=== PATIENT | female | born 1940 | race Caucasian/White ===

== ENCOUNTER 2017-04-22 08:08 | Outpatient (CLI) | payer MEDICARE | END 2017-04-22 08:09 | disposition home or self-care (01) | LOC: BICMAMMO 08:08 | PROVIDERS: ATTEND Family Medicine | DX: Z12.31 Encounter for screening mammogram for malignant neoplasm of breast (principal); Z13.820 Encounter for screening for osteoporosis | CPT/HCPCS: 77063; 77080; G0202; 77067 ==

== ENCOUNTER 2018-01-14 12:15 | Outpatient (CLI) | payer MEDICARE ==
[2018-01-14 13:28] LABS: #Eosinphils 0.1 thou/uL (0.0-0.7); #Lymphocytes 1.5 thou/uL (1.20-3.40); #Monocytes 0.5 thou/uL (0.11-0.59); #Neutrophils 4.5 thou/uL (1.40-6.50); %Basophils 0.5 % (0.0-1.0); %Eosinophils 1.7 % (0.0-10.0); %Lymphocytes 23.1 % (21.0-51.0); %Monocytes 7.6 % (0.0-10.0); %Neutrophils 67.1 % (42.0-75.0); Hemoglobin 13.1 g/dL (12.0-16.0); Mean Corpuscular HGB CONC 34.3 g/dL (32.0-36.0); Mean Corpuscular Hemoglobin 29.7 pg (27.0-31.0); Mean Corpuscular Volume 86.5 fL (78.0-98.0); Mean Platelet Volume 6.9 fL (7.4-10.4); Platelet Count 359 thou/uL (130-400); RBC Distribution Width 11.7 % (11.5-14.5); White Blood Cell (WBC) Count 6.7 thou/uL (4.8-10.8)
[2018-01-14 13:33] LABS: Bilirubin Negative (Negative); Blood, Urine Negative (Negative); Clarity CLOUDY (Clear); Glucose, Urine (Dipstick) Negative (Negative); Leukocyte Large (Negative); Nitrite Negative (Negative); Protein, Urine (Dipstick) Negative (Neg-Trace); Specific Gravity, Urine 1.017 (1.002-1.036)
[2018-01-14 13:36] LABS: INR-International Normal Ratio 0.9; PTT 28.6 SEC (22.9-36.1); Prothrombin Time 12.5 SEC (12.0-14.7)
[2018-01-14 13:47] LABS: Bacteria/HPF 4+ HPF (None Seen); Hyaline Casts/LPF 0-3 HYALINE CAST LPF (0-3 Hyaline); RBC/HPF 0-3 HPF (0-3); Squamous Epithelial 0-3 HPF (0-3)
[2018-01-14 14:05] LABS: Anion Gap 14 mmol/L (10-20); BUN (Urea Nitrogen) 23 mg/dL (9.8-20.1); Calc. Creatinine Clearance 0 mL/min (70-130); Calcium 9.9 mg/dL (7.8-10.44); Carbon Dioxide 26 mmol/L (23-31); Chloride 99 mmol/L (98-107); Estimated GFR-MDRD 44; Glucose 91 mg/dL (83-110); Sodium 135 mmol/L (136-145)
== END 2018-01-14 12:16 | disposition home or self-care (01) ==
LOC: LABBT 12:15
PROVIDERS: ATTEND Orthopaedic Surgery
DX: Z01.818 Encounter for other preprocedural examination (principal); M17.11 Unilateral primary osteoarthritis, right knee
CPT/HCPCS: 80048; 81001; 85025; 85610; 85730; 86850; 86900; 86901; 87081; 93005; 93010

== ENCOUNTER 2018-01-19 05:32 | Day surgery (SDC) | payer MEDICARE ==
[2018-01-14 12:54] VITALS: BMI 32.9
[2018-01-19] MEDS ORDERED: CEFAZOLIN/Water 2 GM/20 ML SYRINGE ONE (06:22)
[2018-01-19] MEDS ORDERED: Sodium Chloride 0.9% 100 ML ONE (06:23)
[2018-01-19] MEDS ORDERED: Midazolam HCl 2 mg/2 ml Vial ONE (06:25)
[2018-01-19] MEDS ORDERED: Fentanyl 100 MCG/2 ML VIAL ONE (06:25)
[2018-01-19] MEDS ORDERED: Lidocaine 1% (PF) 30 ML VIAL ONE (06:26)
[2018-01-19] MEDS ORDERED: Vancomycin HCl 1.5 GM in Sodium Chloride 0.9% 250 ML 300 ML IVPB SCH ×2 (06:30→19:00)
[2018-01-19] MEDS ORDERED: Bupivacaine/Epinephrine 0.25% 30 ML VIAL ONE ×2 (06:33→06:43)
[2018-01-19] MEDS ORDERED: HYDROcodone/Acetaminophen 10/325 mg Tablet PO PRN ×2 (06:50)
[2018-01-19] MEDS ORDERED: diphenhydrAMINE 25 MG CAP PO PRN (06:50)
[2018-01-19] MEDS ORDERED: traMADol HCl 50 MG TAB PO PRN ×3 (06:50→06:58)
[2018-01-19] MEDS ORDERED: Promethazine HCl 25 MG/ML VIAL IM PRN ×3 (06:50→09:34)
[2018-01-19] MEDS ORDERED: Zolpidem Tartrate 5 MG TAB PO PRN ×2 (06:50→06:58)
[2018-01-19] MEDS ORDERED: Fentanyl 100 MCG/2 ML VIAL SLOW IVP PRN ×2 (06:50)
[2018-01-19] MEDS ORDERED: Ondansetron HCl/PF 4 MG/2 ML Vial IVP PRN ×3 (06:50→09:34)
[2018-01-19] MEDS ORDERED: Acetaminophen 325 MG TAB PO PRN (06:50)
[2018-01-19] MEDS ORDERED: HYDROmorphone 2 MG/ML VIAL ONE (06:55)
[2018-01-19] MEDS ORDERED: Ropivacaine HCl/PF 250 ML in Premix Bag 1 BAG NERVE BLCK SCH (06:58)
[2018-01-19] MEDS ORDERED: Fentanyl 100 MCG/2 ML VIAL IV PRN (06:59)
[2018-01-19] MEDS ORDERED: Levofloxacin 500 mg/D5W 100 ml Premix Bag ONE (07:46)
[2018-01-19] MEDS ORDERED: HYDROmorphone 2 MG/ML VIAL SLOW IVP PRN (09:34)
[2018-01-19] MEDS ORDERED: Promethazine HCl 25 MG/ML VIAL SLOW IVP PRN (09:34)
[2018-01-19] MEDS ORDERED: Tranexamic Acid 1,000 MG in Sodium Chloride 0.9% 100 ML IVPB SCH (09:45)
[2018-01-19 10:02] LABS: Bilirubin Negative (Negative); Blood, Urine Negative (Negative); Clarity CLEAR (Clear); Glucose, Urine (Dipstick) Negative (Negative); Leukocyte Small (Negative); Nitrite Negative (Negative); Protein, Urine (Dipstick) Negative (Neg-Trace); Specific Gravity, Urine 1.016 (1.002-1.036); Urobilinogen 0.2 mg/dL (0.2-1.0)
[2018-01-19 10:04] LABS: Bacteria/HPF None Seen HPF (None Seen); Hyaline Casts/LPF 0-3 HYALINE CAST LPF (0-3 Hyaline); Pathc Cast-AUWi Flag 0.58 (0-2.49); RBC/HPF 0-3 HPF (0-3); Squamous Epithelial 0-3 HPF (0-3)
--- NOTE | 2018-01-19 10:14 | OP ---
DATE OF PROCEDURE: 01/19/2018 PREOPERATIVE DIAGNOSIS: Right knee osteoarthritis. POSTOPERATIVE DIAGNOSIS: Right knee osteoarthritis. PROCEDURE PERFORMED: Right total knee arthroplasty. STAFF: Alvin Mays M.D. PUBLIC POLICY PROFESSOR: Adolfo Rowe PA-C. ANESTHESIA: [place]. The patient received a LMA with a single shot sciatic and an adductor canal block. ESTIMATED BLOOD LOSS: 100 mL. TOURNIQUET TIME: 89 minutes at 300 mmHg. ANTIBIOTICS: Vancomycin 1.5 grams, Ancef 2 grams and Levaquin 500 mg, he does have a positive UA. TXA 1 gram. IMPLANTS: A Tony size 4 femur, tibia 4 tibial tray, 9 CS femur an A29 patella. COMPLICATIONS: None. HISTORY OF PRESENT ILLNESS: Ms. Cruz is a 77-year-old female who presented with right knee pain after an injury 2 years ago. The patient was treated nonoperatively for a plateau fracture. The patient had pain rated 9/10, had previous hip surgery at the [facility]. She was given an injection which gave her 2 months' relief. The patient understood the risks and benefits of right total knee arthroplasty to include pain, scar, bleeding, infection, damage to vital structures, decreased motor or strength, continued pain despite surgical intervention, need for further surgeries, loss of life or limb. The patient understood these risks and elected to proceed. PROCEDURE IN DETAIL: Timeout performed designating the patient's right lower extremity as the operative site based on site, consents, marking. After completion of timeout, the patient's right lower extremity was prepped and draped in sterile fashion. Tourniquet was brought up and left up for a total of 89 minutes. Anterior midline incision was made medial patellar arthrotomy. We excised the fat pad, did a small medial release and physiologically the patient had valgus. We excised the fat pad, everted the patella. We started to pinned our femur. Our computer navigation despite changing through 2 different guns and 2 different computers was not sinking, therefore we had to move to manual jigs and made our drill hole for our intramedullary guide, placed our intramedullary guide, placed the external jig in place. We cut at 8 mm. We had a small butterfly after removing our bone. We then placed a 3 degree external rotation guide based on epicondyle axis. We pinned and cut the patient in 3 degrees of external rotation. We sized to a 4 medial, lateral, anterior, posterior might have been a little smaller, felt the medial lateral, the best fit was a size 4, which we cut. We then moved anterior, posterior chamfer cuts. The ACL was gone. We placed our pickle fork in position to expose the patient's tibia. We used our drop nathan guide trying to give about 4/ 5 degrees of posterior slope. We pinned it into place, pinned it so that we were getting 2 mm off the affected side which was the lateral plateau. We cut, removed our access segment of the tibia. I felt we had overall good cut, the PCL was still intact. We then removed our menisci. Placed our osteotome and decompressed osteophytes, decompressed our PCL. We then placed our tray in the appropriate position, we pinned it. After we pinned it, we removed it and floated it, we placed a 9 mm poly. We looked on the tibial tubercle. We liked the overall alignment of the limb. We pinned our tray into place. We had good flexion, extension with a 9 mm poly, felt we had overall good alignment of the limb based on our tibial tray. After we pinned our tray we then chose final implants. We drilled holes for our lugs. We cut our keel for our tibia. We everted patella went down from 25 down to about 12 mm. We put an A29 symmetric patella. The patient tracked well. Drilled the lugs, tracked our patella. We then everted, removed all the implants and cemented our tibia, removed the excess cement, cemented our femur, placed our poly, cemented our femur, removed excess cement, placed our patella cemented it into place. We then cleaned out, washed out the joint to assure there was no excess cement. We then closed down the patient's knee arthrotomy with #1 Vicryl. We then did #2 Quill, 0 Quill and 2-0 Quill and glue. The patient will be admitted post-procedure for [place] protocol followed by Medicine. Followed by physical therapy as per protocol. SURENDRA
[2018-01-19] MEDS: Sodium Chloride 0.9% 1,000 ML IV SCH ×2 (11:39→18:12)
--- NOTE | 2018-01-19 11:39 | RAD ---
RIGHT KNEE TWO VIEWS: HISTORY: Postop total knee. COMPARISON: Knee radiographs from 2015. FINDINGS: Satisfactory postoperative appearance from right total knee arthroplasty and patellar resurfacing. E xpected postoperative gas and edema. IMPRESSION: Satisfactory postoperative appearance. POS: TPC
[2018-01-19] MEDS: Aspirin 81 mg Enteric Coated Tablet PO SCH ×2 (11:40→19:54)
[2018-01-19] MEDS ORDERED: Ropivacaine 0.2% HCl/PF (40 MG/20 ML VIAL) ONE (13:47)
[2018-01-19] MEDS ORDERED: Ropivacaine 0.5% HCl/PF (150 MG/30 ML VIAL) ONE (13:47)
[2018-01-19] MEDS ORDERED: Mag-Al 1200 mg/1200 mg/30 ML UDCUP PO PRN (13:50)
[2018-01-19] MEDS ORDERED: Eucerin (Mineral Oil/Petrolatum,White) 30 gm Jar TOP PRN (13:50)
[2018-01-19] MEDS ORDERED: Chloraseptic Spray 180 ml Bottle PO PRN (13:50)
[2018-01-19] MEDS ORDERED: hydrALAZINE 20 MG/ML VIAL SLOW IVP PRN (13:50)
[2018-01-19] MEDS ORDERED: Loperamide HCl 2 MG CAP PO PRN (13:50)
[2018-01-19] MEDS ORDERED: Milk Of Magnesia 30 ML UDCUP PO PRN (13:50)
[2018-01-19] MEDS ORDERED: Artificial Tear Sol 15 ML BOT EA EYE PRN (13:50)
[2018-01-19] MEDS ORDERED: Senokot 8.6 MG TAB PO PRN (13:50)
[2018-01-19] MEDS ORDERED: Diabetic Tussin 200 MG/10 ML UDCUP PO PRN (13:50)
[2018-01-19] MEDS ORDERED: Dextrose 50% Abboject 50 ML SYRINGE SLOW IVP PRN (14:02)
[2018-01-19] MEDS ORDERED: HumaLOG 300 UNITS/3 ML VIAL SC PRN ×2 (14:02)
[2018-01-19] MEDS ORDERED: Dextrose 5% in Water 1,000 ML IV PRN (14:02)
--- NOTE | 2018-01-19 14:02 | PDOC.PN ---
- Subjective Encounter Start Date: 01/19/18 Encounter Start Time: 13:00 -: old records requested/rev pt is admitted for knee replacement, post op consulted for medical management Patient seen and examined. No new complaints. - Objective Resuscitation Status: Resuscitation Status FULL:Full Resuscitation MAR Reviewed: Yes Vital Signs & Weight: Vital Signs (12 hours) Temp Pulse Resp BP BP Pulse Ox 01/19/18 13:45 98.0 F 83 16 118/76 99 01/19/18 11:56 98.6 F 82 18 104/56 L 100 01/19/18 10:15 97.5 F L 87 18 148/82 H 96 Weight Weight 180 lb Radiology Reviewed by me: Yes Phys Exam - Physical Examination Constitutional: NAD HEENT: PERRLA, moist MMs, sclera anicteric Neck: no JVD, supple Respiratory: no wheezing, no rales, no rhonchi Cardiovascular: RRR, no significant murmur, no rub Gastrointestinal: soft, non-tender, no distention, positive bowel sounds Musculoskeletal: no edema, pulses present right knee with dressing, nerve block in place, vargas in place Neurological: non-focal, normal sensation, moves all 4 limbs Psychiatric: normal affect, A&O x 3 Skin: no rash, normal turgor Dx/Plan (1) Status post total right knee replacement Code(s): Z96.651 - PRESENCE OF RIGHT ARTIFICIAL KNEE JOINT Status: Acute (2) CKD (chronic kidney disease) stage 3, GFR 30-59 ml/min Code(s): N18.3 - CHRONIC KIDNEY DISEASE, STAGE 3 (MODERATE) Status: Chronic (3) Diabetes type 2, controlled Code(s): E11.9 - TYPE 2 DIABETES MELLITUS WITHOUT COMPLICATIONS Status: Chronic (4) Dyslipidemia Code(s): E78.5 - HYPERLIPIDEMIA, UNSPECIFIED Status: Chronic (5) Hypertension Code(s): I10 - ESSENTIAL (PRIMARY) HYPERTENSION Status: Chronic (6) Hypothyroidism Code(s): E03.9 - HYPOTHYROIDISM, UNSPECIFIED Status: Chronic (7) Obesity (BMI 30.0-34.9) Code(s): E66.9 - OBESITY, UNSPECIFIED Status: Chronic (8) Osteoporosis Code(s): M81.0 - AGE-RELATED OSTEOPOROSIS W/O CURRENT PATHOLOGICAL FRACTURE Status: Chronic - Plan cont current plan of care, plan discussed w/ family, PT/OT * continue aspirin for DVT prophylaxis * add pepcid 20 mg po HS for GI prophylaxis * nerve block as per anesthesia * PT/OT as per [facility] protocol treatment * medication reviewed as below * symptomatic treatment * discussed with family * code status: full code * Home medication reconciled. * add hyperglycemia protocol orderes Review of Systems - Review of Systems Constitutional: negative: fever, chills, sweats, weakness, malaise, other ENT: negative: Ear Pain, Ear Discharge, Nose Pain, Nose Discharge, Nose Congestion, Mouth Pain, Mouth Swelling, Throat Pain, Throat Swelling, Other Respiratory: negative: Cough, Dry, Shortness of Breath, Hemoptysis, SOB with Excertion, Pleuritic Pain, Sputum, Wheezing Cardiovascular: negative: chest pain, palpitations, orthopnea, paroxysmal nocturnal dyspnea, edema, light headedness, other Gastrointestinal: negative: Nausea, Vomiting, Abdominal Pain, Diarrhea, Constipation, Melena, Hematochezia, Other Genitourinary: negative: Dysuria, Frequency, Incontinence, Hematuria, Retention , Other Musculoskeletal: negative: Neck Pain, Shoulder Pain, Arm Pain, Back Pain, Hand Pain, Leg Pain, Foot Pain, Other Skin: negative: Rash, Lesions, Florian, Bruising, Other - Medications/Allergies Allergies/Adverse Reactions: Allergies Allergy/AdvReac Type Severity Reaction Status Date / Time No Known Allergies Allergy Verified 01/14/18 12:54 Medications: Current Medications Acetaminophen (Tylenol) 650 mg PO Q4H PRN PRN Reason: MALDONADO/ T > 101F; Mild Pain (1-3) Hydrocodone Bitart/Acetaminophen ([place] 10/325) 1 tab PO Q4H PRN PRN Reason: Pain (1-3) Hydrocodone Bitart/Acetaminophen ([place] 10/325) 2 tab PO Q4H PRN PRN Reason: PAIN (4-6) Al Hydroxide/Mg Hydroxide (Maalox) 15 ml PO Q4H PRN PRN Reason: Heartburn or Indigestion Artificial Tears (Tears Naturale) 0 drop EA EYE PRN PRN PRN Reason: Dry Eyes Aspirin (Ecotrin) 81 mg PO BID [facility] Last Admin: 01/19/18 11:40 Dose: Not Given Cefazolin Sodium (Ancef) 2 gm SLOW IVP 0800,1600,2359 [facility] Stop: 01/20/18 00:00 Citalopram Hydrobromide (Celexa) 40 mg PO QAM [facility] Diphenhydramine HCl (Benadryl) 25 mg PO Q6H PRN PRN Reason: Itching Famotidine (Pepcid) 20 mg PO BID [facility] Fentanyl (Sublimaze) 50 mcg IV Q1H PRN PRN Reason: BREAKTHROUGH PAIN Ferrous Gluconate (Fergon) 324 mg PO BID [facility] Guaifenesin (Robitussin Sf) 200 mg PO Q4H PRN PRN Reason: Cough Hydralazine HCl (Apresoline) 10 mg SLOW IVP Q4H PRN PRN Reason: Systolic BP > 180 Hydrochlorothiazide (Hydrochlorothiazide) 25 mg PO QAM [facility] Levofloxacin 500 mg/ Device 100 mls @ 100 mls/hr IVPB Q24HR@0800 [facility] Stop: 01/20/18 08:59 Sodium Chloride (Normal Saline 0.9%) 1,000 mls @ 100 mls/hr IV .Q10H [facility] Last Admin: 01/19/18 11:39 Dose: Not Given Vancomycin HCl 1.5 gm/ Sodium (Chloride) 300 mls @ 200 mls/hr IVPB 1900 [facility] Stop: 01/19/18 20:29 Ropivacaine 250 ml/ Device 250 mls @ 0 mls/hr NERVE BLCK INF [facility] Iron/Minerals/Multivitamins (Theragran M) 1 tab PO DAILY [facility] Levothyroxine Sodium (Synthroid) 100 mcg PO 0600 [facility] Lisinopril (Zestril) 20 mg PO QAM [facility] Loperamide HCl (Imodium) 2 mg PO PRN PRN PRN Reason: Diarrhea/Loose Stools Magnesium Hydroxide (Milk Of Magnesium) 30 ml PO DAILYPRN PRN PRN Reason: Constipation Metformin HCl (Glucophage) 850 mg PO BID-[facility] Mineral Oil/White Petrolatum (Eucerin Cream) 0 gm TOP BIDPRN PRN PRN Reason: Dry Skin Ondansetron HCl (Zofran) 4 mg IVP Q6H PRN PRN Reason: Nausea/Vomiting Phenol (Chloraseptic [place] 180 Ml Bot) 0 ml PO PRN PRN PRN Reason: Sore Throat Promethazine HCl (Phenergan) 12.5 mg IM Q4H PRN PRN Reason: Nausea Senna (Senokot) 2 tab PO HSPRN PRN PRN Reason: Constipation Senna/Docusate Sodium (Senokot S) 2 tab PO BID [facility] Simvastatin (Zocor) 10 mg PO HS [facility] Sodium Chloride (Flush - Normal Saline) 10 ml IVF Q12HR [facility] Last Admin: 01/19/18 11:40 Dose: Not Given Sodium Chloride (Flush - Normal Saline) 10 ml IVF PRN PRN PRN Reason: Saline Flush Tramadol HCl (Ultram) 50 mg PO Q6H PRN PRN Reason: Mild Pain (1-3) Tramadol HCl (Ultram) 100 mg PO Q6H PRN PRN Reason: Moderate Pain 4-6 Zolpidem Tartrate (Ambien) 5 mg PO HSPRN PRN PRN Reason: Insomnia
[2018-01-19] MEDS ORDERED: Lidocaine 1% PF 5 ML VIAL ONE (14:21)
[2018-01-19] MEDS ORDERED: PROPOFOL 200 MG/20 ML VIAL ONE (14:21)
[2018-01-19] MEDS ORDERED: Ondansetron HCl/PF 4 MG/2 ML Vial ONE (14:21)
[2018-01-19] MEDS ORDERED: ePHEDrine/0.9% NaCl/PF SYRINGE 50 mg/10 ml ONE (14:21)
[2018-01-19] MEDS: HYDROcodone/Acetaminophen 10/325 mg Tablet PO PRN ×2 (15:39→19:54)
[2018-01-19] MEDS: CEFAZOLIN/Water 2 GM/20 ML SYRINGE SLOW IVP SCH ×2 (17:39→23:38)
[2018-01-19] MEDS: metFORMIN 850 MG TAB PO SCH (18:12)
[2018-01-19] MEDS: Simvastatin 5 MG TAB PO SCH (19:54)
[2018-01-20] MEDS: CEFAZOLIN/Water 2 GM/20 ML SYRINGE SLOW IVP SCH (00:48)
[2018-01-20] MEDS: Sodium Chloride 0.9% 1,000 ML IV SCH ×2 (00:50→12:52)
[2018-01-20] MEDS: HYDROcodone/Acetaminophen 10/325 mg Tablet PO PRN ×4 (02:52→21:03)
[2018-01-20 04:39] LABS: Hemoglobin 10.7 g/dL (12.0-16.0); Mean Corpuscular HGB CONC 33.6 g/dL (32.0-36.0); Mean Corpuscular Hemoglobin 29.1 pg (27.0-31.0); Mean Corpuscular Volume 86.8 fL (78.0-98.0); Mean Platelet Volume 7.4 fL (7.4-10.4); Platelet Count 248 thou/uL (130-400); RBC Distribution Width 11.5 % (11.5-14.5); Red Blood Cell (RBC) Count 3.66 mill/uL (4.20-5.40); White Blood Cell (WBC) Count 7.4 thou/uL (4.8-10.8)
[2018-01-20] MEDS: Levothyroxine Sodium 100 MCG TAB PO SCH (05:57)
[2018-01-20] MEDS: metFORMIN 850 MG TAB PO SCH ×2 (07:44→17:06)
[2018-01-20] MEDS: Aspirin 81 mg Enteric Coated Tablet PO SCH ×2 (07:51→20:59)
[2018-01-20] MEDS: Famotidine 20 MG TAB PO SCH (07:52)
[2018-01-20] MEDS: Citalopram 20 MG TAB PO SCH (07:52)
[2018-01-20] MEDS: Senokot S 8.6-50 MG TAB PO SCH ×2 (07:53→20:59)
[2018-01-20] MEDS: Multivitamin W/ Minerals 1 TAB PO SCH (07:53)
[2018-01-20] MEDS: Hydrochlorothiazide 25 MG TAB PO SCH (07:53)
[2018-01-20] MEDS: Ferrous Gluconate 324 MG TAB PO SCH ×2 (07:53→20:59)
[2018-01-20] MEDS: Lisinopril 20 MG TAB PO SCH (07:53)
--- NOTE | 2018-01-20 10:58 | PDOC.PN ---
- Subjective Encounter Start Date: 01/20/18 Encounter Start Time: 08:10 Patient seen and examined. No new complaints. No overnight events pain controlled - Objective Resuscitation Status: Resuscitation Status FULL:Full Resuscitation MAR Reviewed: Yes Vital Signs & Weight: Vital Signs (12 hours) Temp Pulse Resp BP BP BP Pulse Ox 01/20/18 08:54 98.1 F 85 14 111/71 92 L 01/20/18 07:53 111/71 01/20/18 03:10 98.3 F 85 18 110/69 92 L 01/19/18 23:35 98.7 F 89 18 99/62 95 Weight Weight 180 lb I&O: 01/19/18 01/20/18 01/21/18 06:59 06:59 06:59 Intake Total 2940 Output Total 1300 Balance 1640 Result Diagrams: 01/20/18 03:20 Additional Labs: Accuchecks 01/20/18 01/19/18 01/19/18 06:02 20:03 17:43 POC Glucose 131 H 145 H 108 Phys Exam - Physical Examination Constitutional: NAD HEENT: PERRLA, moist MMs, sclera anicteric Neck: no JVD, supple Respiratory: no wheezing, no rales, no rhonchi Cardiovascular: RRR, no significant murmur, no rub Gastrointestinal: soft, non-tender, no distention, positive bowel sounds Musculoskeletal: no edema, pulses present nerve block in place, right knee with dressing, vargas in place Neurological: non-focal, normal sensation, moves all 4 limbs Psychiatric: normal affect, A&O x 3 Skin: no rash, normal turgor Dx/Plan (1) Status post total right knee replacement Code(s): Z96.651 - PRESENCE OF RIGHT ARTIFICIAL KNEE JOINT Status: Acute (2) CKD (chronic kidney disease) stage 3, GFR 30-59 ml/min Code(s): N18.3 - CHRONIC KIDNEY DISEASE, STAGE 3 (MODERATE) Status: Chronic (3) Diabetes type 2, controlled Code(s): E11.9 - TYPE 2 DIABETES MELLITUS WITHOUT COMPLICATIONS Status: Chronic (4) Dyslipidemia Code(s): E78.5 - HYPERLIPIDEMIA, UNSPECIFIED Status: Chronic (5) Hypertension Code(s): I10 - ESSENTIAL (PRIMARY) HYPERTENSION Status: Chronic (6) Hypothyroidism Code(s): E03.9 - HYPOTHYROIDISM, UNSPECIFIED Status: Chronic (7) Obesity (BMI 30.0-34.9) Code(s): E66.9 - OBESITY, UNSPECIFIED Status: Chronic (8) Osteoporosis Code(s): M81.0 - AGE-RELATED OSTEOPOROSIS W/O CURRENT PATHOLOGICAL FRACTURE Status: Chronic - Plan cont current plan of care, PT/OT * continue aspirin for DVT prophylaxis * change pepcid for GI prophylaxis * nerve block as per anesthesia * PT/OT as per [facility] protocol treatment * medication reviewed as below * symptomatic treatment. * medically stable * pain controlled. Review of Systems - Review of Systems Eyes: negative: Pain, Vision Change, Conjunctivae Inflammation, Eyelid Inflammation, Redness, Other ENT: negative: Ear Pain, Ear Discharge, Nose Pain, Nose Discharge, Nose Congestion, Mouth Pain, Mouth Swelling, Throat Pain, Throat Swelling, Other Respiratory: negative: Cough, Dry, Shortness of Breath, Hemoptysis, SOB with Excertion, Pleuritic Pain, Sputum, Wheezing Cardiovascular: negative: chest pain, palpitations, orthopnea, paroxysmal nocturnal dyspnea, edema, light headedness, other Gastrointestinal: negative: Nausea, Vomiting, Abdominal Pain, Diarrhea, Constipation, Melena, Hematochezia, Other Genitourinary: negative: Dysuria, Frequency, Incontinence, Hematuria, Retention , Other Musculoskeletal: negative: Neck Pain, Shoulder Pain, Arm Pain, Back Pain, Hand Pain, Leg Pain, Foot Pain, Other Skin: negative: Rash, Lesions, Florian, Bruising, Other - Medications/Allergies Allergies/Adverse Reactions: Allergies Allergy/AdvReac Type Severity Reaction Status Date / Time No Known Allergies Allergy Verified 01/14/18 12:54 Medications: Current Medications Acetaminophen (Tylenol) 650 mg PO Q4H PRN PRN Reason: MALDONADO/ T > 101F; Mild Pain (1-3) Hydrocodone Bitart/Acetaminophen ([place] 10/325) 1 tab PO Q4H PRN PRN Reason: Pain (1-3) Last Admin: 01/20/18 02:52 Dose: 1 tab Hydrocodone Bitart/Acetaminophen ([place] 10/325) 2 tab PO Q4H PRN PRN Reason: PAIN (4-6) Last Admin: 01/20/18 08:01 Dose: 2 tab Al Hydroxide/Mg Hydroxide (Maalox) 15 ml PO Q4H PRN PRN Reason: Heartburn or Indigestion Artificial Tears (Tears Renewed 15ml Bottle) 0 drop EA EYE PRN PRN PRN Reason: Dry Eyes Aspirin (Ecotrin) 81 mg PO BID [facility] Last Admin: 01/20/18 07:51 Dose: 81 mg Citalopram Hydrobromide (Celexa) 40 mg PO QAM [facility] Last Admin: 01/20/18 07:52 Dose: 40 mg Dextrose/Water (Dextrose 50%) 25 gm SLOW IVP PRN PRN PRN Reason: Hypoglycemia Diphenhydramine HCl (Benadryl) 25 mg PO Q6H PRN PRN Reason: Itching Famotidine (Pepcid) 20 mg PO DAILY [facility] Last Admin: 01/20/18 07:52 Dose: 20 mg Fentanyl (Sublimaze) 50 mcg IV Q1H PRN PRN Reason: BREAKTHROUGH PAIN Ferrous Gluconate (Fergon) 324 mg PO BID [facility] Last Admin: 01/20/18 07:53 Dose: 324 mg Glucagon (Glucagon) 1 mg IM PRN PRN PRN Reason: Hypoglycemia Guaifenesin (Robitussin Sf) 200 mg PO Q4H PRN PRN Reason: Cough Hydralazine HCl (Apresoline) 10 mg SLOW IVP Q4H PRN PRN Reason: Systolic BP > 180 [facility] ([facility]iazide) [facility] Last Admin: 01/20/18 07:53 Dose: 25 mg Sodium Chloride (Normal Saline 0.9%) 1,000 mls @ 100 mls/hr IV .Q10H [facility] Last Admin: 01/20/18 00:50 Dose: Not Given Ropivacaine 250 ml/ Device 250 mls @ 0 mls/hr NERVE BLCK INF [facility] Last Admin: 01/20/18 10:32 Dose: 250 mls Dextrose/Water (D5w) 1,000 mls @ 0 mls/hr IV .Q0M PRN PRN Reason: Hypoglycemia Insulin Human Lispro (Humalog) 0 units SC .MODERATE SLIDING SC PRN PRN Reason: Moderate [place]al Scale Insulin Human Lispro (Humalog) 0 units SC .BEDTIME SLIDING SC PRN PRN Reason: Bedtime Correctional Scale Iron/Minerals/Multivitamins (Theragran M) 1 tab PO DAILY [facility] Last Admin: 01/20/18 07:53 Dose: 1 tab Levothyroxine Sodium (Synthroid) 100 mcg PO 0600 [facility] Last Admin: 01/20/18 05:57 Dose: 100 mcg Lisinopril (Zestril) 20 mg PO QAM [facility] Last Admin: 01/20/18 07:53 Dose: 20 mg Loperamide HCl (Imodium) 2 mg PO PRN PRN PRN Reason: Diarrhea/Loose Stools Magnesium Hydroxide (Milk Of Magnesium) 30 ml PO DAILYPRN PRN PRN Reason: Constipation Metformin HCl (Glucophage) 850 mg PO BID-[facility] Last Admin: 01/20/18 07:44 Dose: 850 mg Mineral Oil/White Petrolatum (Eucerin Cream) 0 gm TOP BIDPRN PRN PRN Reason: Dry Skin Ondansetron HCl (Zofran) 4 mg IVP Q6H PRN PRN Reason: Nausea/Vomiting Last Admin: 01/20/18 07:42 Dose: 4 mg Phenol (Chloraseptic [place] 180 Ml Bot) 0 ml PO PRN PRN PRN Reason: Sore Throat Promethazine HCl (Phenergan) 12.5 mg IM Q4H PRN PRN Reason: Nausea Senna (Senokot) 2 tab PO HSPRN PRN PRN Reason: Constipation Senna/Docusate Sodium (Senokot S) 2 tab PO BID [facility] Last Admin: 01/20/18 07:53 Dose: 2 tab Simvastatin (Zocor) 10 mg PO HS [facility] Last Admin: 01/19/18 19:54 Dose: 10 mg Sodium Chloride (Flush - Normal Saline) 10 ml IVF Q12HR [facility] Last Admin: 01/20/18 07:54 Dose: 10 ml Sodium Chloride (Flush - Normal Saline) 10 ml IVF PRN PRN PRN Reason: Saline Flush Tramadol HCl (Ultram) 50 mg PO Q6H PRN PRN Reason: Mild Pain (1-3) Tramadol HCl (Ultram) 100 mg PO Q6H PRN PRN Reason: Moderate Pain 4-6 Zolpidem Tartrate (Ambien) 5 mg PO HSPRN PRN PRN Reason: Insomnia
[2018-01-20] MEDS: Simvastatin 5 MG TAB PO SCH (20:59)
[2018-01-21 05:31] LABS: Mean Corpuscular HGB CONC 33.9 g/dL (32.0-36.0); Mean Corpuscular Hemoglobin 29.2 pg (27.0-31.0); Mean Corpuscular Volume 86.1 fL (78.0-98.0); Mean Platelet Volume 6.9 fL (7.4-10.4); Platelet Count 332 thou/uL (130-400); RBC Distribution Width 11.7 % (11.5-14.5); Red Blood Cell (RBC) Count 4.12 mill/uL (4.20-5.40); White Blood Cell (WBC) Count 12.4 thou/uL (4.8-10.8)
[2018-01-21] MEDS: Levothyroxine Sodium 100 MCG TAB PO SCH (06:06)
[2018-01-21] MEDS: Citalopram 20 MG TAB PO SCH (07:39)
[2018-01-21] MEDS: metFORMIN 850 MG TAB PO SCH (07:39)
[2018-01-21] MEDS: Senokot S 8.6-50 MG TAB PO SCH (07:39)
[2018-01-21] MEDS: Famotidine 20 MG TAB PO SCH (07:40)
[2018-01-21] MEDS: Lisinopril 20 MG TAB PO SCH (07:40)
[2018-01-21] MEDS: Aspirin 81 mg Enteric Coated Tablet PO SCH (07:40)
[2018-01-21] MEDS: Ferrous Gluconate 324 MG TAB PO SCH (07:40)
[2018-01-21] MEDS: Multivitamin W/ Minerals 1 TAB PO SCH (07:40)
[2018-01-21] MEDS: Hydrochlorothiazide 25 MG TAB PO SCH (07:40)
[2018-01-21] MEDS: HYDROcodone/Acetaminophen 10/325 mg Tablet PO PRN (09:18)
[2018-01-21] MEDS: Sodium Chloride 0.9% 1,000 ML IV SCH ×2 (09:23)
--- NOTE | 2018-01-21 10:59 | PRG ---
PRIMARY CARE PHYSICIAN: Vitaliy Walters M.D. DATE OF ADMISSION: 01/19/2018 DATE OF DISCHARGE: 01/21/2018 DISCHARGE DISPOSITION: Home. PRIMARY DISCHARGE DIAGNOSIS: Status post right total knee replacement. SECONDARY DISCHARGE DIAGNOSES: Chronic kidney disease stage 3, diabetes type 2, dyslipidemia, hypert ension, hypothyroidism, obesity with body mass index 32 and osteoporosis. PRIMARY PROCEDURES AND OPERATIONS: Right total knee replacement, which was done by Dr. Mays. RADIOLOGICAL INVESTIGATION: Knee x-ray. SIGNIFICANT LABORATORY DATA: WBC 12.4, hemoglobin 12.0, platelets 332. Urinalysis unremarkable. Ur ine culture negative. DISCHARGE MEDICATIONS: Aspirin 81 mg p.o. b.i.d. for DVT prophylaxis. Pain medication will be presc ribed by primary team. Fosamax 70 mg every week, Celexa 40 mg p.o. daily, hydrochlorothiazide 25 mg p.o. daily, Synthroid 100 mcg p.o. daily, lisinopril 20 mg p.o. daily, metformin 850 mg p.o. b.i.d., pravastatin 20 mg p.o. at bedtime. CONTRAINDICATIONS: None. CODE STATUS: FULL CODE. INPATIENT CONSULTANTS: Dr. Mays was primary while in hospital. Carine Team was consulted for [facility] comanagement. TEST RESULTS PENDING ON DISCHARGE: None. ALLERGIES: No known drug allergy. DISCHARGE PLAN: Post hospital, patient has appointment with Dr. Mays on 02/09/2018 at 1:45 p.m. T he patient will make appointment with primary care physician in 1 week. HOSPITAL COURSE: A 77-year-old female who was electively admitted by Dr. Mays for right total kne e replacement which was done on 01/19/2018. Postoperatively, [facility] Team was consulted for medical co management. We resumed patient's home medication while in the hospital. She was given aspirin for D VT prophylaxis. She had nerve block while in hospital, which was removed before discharge. The ilir ent did very well with [facility] protocol treatment. Patient is seen and examined at bedside today. All review of system reviewed with her and negative. PHYSICAL EXAMINATION: VITAL SIGNS: Currently, temperature 98.4, pulse 88, respiratory rate 17, saturation 95% on room air, blood pressure 127/84, weight 180 pounds. GENERAL: The patient is currently alert, awake, no obvious acute distress. HEAD: Normocephalic, atraumatic. EYES: Pupils round, reactive to light. Extraocular muscle intact. ENT: Oropharynx within normal limits. Moist mucous membrane, no oral lesion, no pharyngeal erythema , no exudate. NECK: Supple, no JVD, no thyromegaly, no carotid bruit. LUNGS: Clear to auscultation without any rhonchi or rales. CARDIAC: S1 and S2 regular without any murmur. ABDOMEN: Soft, benign. EXTREMITIES: No edema. NEUROLOGIC: Nonfocal examination. The patient is medically stable for discharge today. We will sign off.
[2018-01-21 11:56] VITALS: TEMP 98
[2018-01-21 13:04] VITALS: BP 124/74
== END 2018-01-21 13:57 | disposition home or self-care (01) ==
LOC: SDC 05:32 → SJJU 10:26 → SDC 01-21 13:57
PROVIDERS: ATTEND Orthopaedic Surgery
PROC: 0SRC0J9 Replacement of Right Knee Joint with Synthetic Substitute, Cemented, Open Approach (ICD-10-PCS; principal; 2018-01-19)
DX: M17.11 Unilateral primary osteoarthritis, right knee (principal); I12.9 Hypertensive chronic kidney disease with stage 1 through stage 4 chronic kidney disease, or unspecified chronic kidney disease; E11.22 Type 2 diabetes mellitus with diabetic chronic kidney disease; N18.3 Chronic kidney disease, stage 3 (moderate); E78.5 Hyperlipidemia, unspecified; E03.9 Hypothyroidism, unspecified; M81.0 Age-related osteoporosis without current pathological fracture; E66.9 Obesity, unspecified; Z68.32 Body mass index [BMI] 32.0-32.9, adult; Z79.84 Long term (current) use of oral hypoglycemic drugs; Z79.899 Other long term (current) drug therapy
CPT/HCPCS: 27447; 73560; 81001; 82962; 85027; 87086; 97110; 97116 ×3; 97139 ×2; 97150; 97530 ×2; C1713; C1776; G8978; G8979; G8987; G8988; 36415; 36416; A4216; J1170; J1956; J2001; J2250; J2405; J2704; J2795; J3010; J3370; J7050

== ENCOUNTER 2019-02-28 14:36 | Outpatient (CLI) | payer MEDICARE ==
--- NOTE | 2019-02-28 16:43 | MMO ---
Bilateral MAMMO Bilat Screen [facility]. CLINICAL HISTORY: Patient is 78 years old and is seen for screening. The patient has no family history of breast cancer. The patient has a history of endometrial cancer at age 67; kidney cancer at age 43 and other cancer. VIEWS: The views performed were: bilateral craniocaudal with tomosynthesis and bilateral mediolateral oblique with tomosynthesis. FILMS COMPARED: The present examination has been compared to prior imaging studies performed at [facility] on 06/28/2014, 04/17/2016 and 04/22/2017, and at [facility] on 01/12/2012. This study has been interpreted with the assistance of computer-aided detection. MAMMOGRAM FINDINGS: There are scattered fibroglandular densities. There are stable calcifications seen in both breasts. There are no suspicious masses, suspicious calcifications, or new areas of architectural distortion. IMPRESSION: THERE IS NO MAMMOGRAPHIC EVIDENCE OF MALIGNANCY. A ROUTINE FOLLOW-UP MAMMOGRAM IN 1 YEAR IS RECOMMENDED. THE RESULTS OF THIS EXAM WERE SENT TO THE PATIENT. ACR BI-RADS Category 2 - Benign finding MAMMOGRAPHY NOTE: 1. A negative mammogram report should not delay a biopsy if a dominant of clinically suspicious mass is present. 2. Approximately 10% to 15% of breast cancers are not detected by mammography. 3. Adenosis and dense breasts may obscure an underlying neoplasm. Reported by: MAGALY IGNACIO MD Electonically Signed: [id number]
== END 2019-02-28 14:37 | disposition home or self-care (01) ==
LOC: BICMAMMO 14:36
PROVIDERS: ATTEND Family Medicine
DX: Z12.31 Encounter for screening mammogram for malignant neoplasm of breast (principal); Z85.528 Personal history of other malignant neoplasm of kidney; Z85.89 Personal history of malignant neoplasm of other organs and systems
CPT/HCPCS: 77063; 77067

== ENCOUNTER 2021-02-01 13:02 | Outpatient (CLI) | payer MEDICARE | END 2021-02-01 13:03 | disposition home or self-care (01) | LOC: BICMAMMO 13:02 | PROVIDERS: ATTEND Family Medicine | DX: Z12.31 Encounter for screening mammogram for malignant neoplasm of breast (principal); Z13.820 Encounter for screening for osteoporosis; M85.852 Other specified disorders of bone density and structure, left thigh; Z85.42 Personal history of malignant neoplasm of other parts of uterus | CPT/HCPCS: 77063; 77067; 77080 ==

== ENCOUNTER 2021-10-28 09:33 | Outpatient (CLI) | payer MEDICARE | END 2021-10-28 09:34 | disposition home or self-care (01) | LOC: NM 09:33 | PROVIDERS: ATTEND Nurse Practitioner Family | DX: M54.9 Dorsalgia, unspecified (principal); R93.7 Abnormal findings on diagnostic imaging of other parts of musculoskeletal system | CPT/HCPCS: 78306; A9503 ==

== ENCOUNTER 2021-11-14 10:57 | Outpatient (CLI) | payer MEDICARE | END 2021-11-14 10:58 | disposition home or self-care (01) | LOC: SCSCT 10:57 | PROVIDERS: ATTEND Family Medicine | DX: M54.9 Dorsalgia, unspecified (principal); R93.7 Abnormal findings on diagnostic imaging of other parts of musculoskeletal system; R94.8 Abnormal results of function studies of other organs and systems; M47.816 Spondylosis without myelopathy or radiculopathy, lumbar region | CPT/HCPCS: 72128; 72131; 72192 ==